=== PATIENT | female | born 1940 | race Caucasian/White ===

== ENCOUNTER → 2016-10-26 | Outpatient (CLI) | payer OTHER, BC ==
[~2016-10-26] MED LIST: ALEVE220 M1 PO; ALEVE220 MG PO; ALPRAZOLAM 0.50.5 M1 PO; ALPRAZOLAM PO; ASPIRIN EC81 M1 PO; CALCIUM OYSTER500 MG PO; FISH OIL 1,0001 EAC5 PO; FLEXERIL PO; GABAPENTIN100 MG PO; GLUCOSAMINE1000 MG PO; HYDROCHLOROTHIA25 M1 PO; HYDROCHLOROTHIA25 M2 PO; HYDROCODON-ACE1 EAC5 PO; HYDROCODONE-AP1 EAC6 PO; LUTEIN 15 MG S1 EACH PO; MULTIVITAMINS PO; NEURONTIN 300300 M1 PO; OMEPRAZOLE PO; OXYCODONE HCL E10 MG PO; OXYCONTIN10 M1 PO; POTASSIUM99 M1 PO; PREMARIN0.3 MG PO; PRILOSEC 10MG C10 M1 PO; PRILOSEC 20 MG20 MG PO; RESTORIL15 MG PO; SYNTHROID100 MCG PO; VICODIN 5-3001 EACH PO; VITAMIN B-12100 MC1 PO; VITAMIN B-625 MG PO; VITAMIN C 250250 MG PO; VITAMIN D400 UNI1 PO; ZANTAC 7575 MG PO
== END ==
LOC: CAT 09:36
DX: M47.896 Other spondylosis, lumbar region (principal); M54.5 Low back pain

== ENCOUNTER → 2016-10-27 | Outpatient (CLI) | payer OTHER, BC | LOC: RAD 10:47 → NUC 10:47 | DX: Z12.31 Encounter for screening mammogram for malignant neoplasm of breast (principal); M54.5 Low back pain ==

== ENCOUNTER → 2016-12-07 | Outpatient (CLI) | payer OTHER, BC | END | disposition home or self-care (01) | LOC: PAIN 06:48 | DX: M54.16 Radiculopathy, lumbar region (principal); M47.896 Other spondylosis, lumbar region; Z87.310 Personal history of (healed) osteoporosis fracture; Z88.2 Allergy status to sulfonamides; Z88.0 Allergy status to penicillin; Z88.8 Allergy status to other drugs, medicaments and biological substances; Z79.82 Long term (current) use of aspirin; Z79.899 Other long term (current) drug therapy ==

== ENCOUNTER → 2017-03-01 | Outpatient (CLI) | payer OTHER, BC ==
[~2017-03-01] VITALS: Ht 165.1 cm; Wt 83.9 kg
[~2017-03-01] MED LIST changes: +LIPITOR10 MG PO
--- NOTE | ~2017-03-01 | HPC ---
[facility] [place] [address] PAIN MANAGEMENT CONSULTATION Name: PATEL MCMULLEN Room #: REG [facility]..#: [id number] Admission: 03/01/17 Attend Phys: Tarun Scott MD Discharge: Date of : 40 Report #: [id number] THIS REPORT FOR: //name// CC: Dahlia Scott DATE OF SERVICE: 03/01/2017 Followup visit for low back pain with radiculopathy. The patient returns to pain clinic today requesting another epidural injection, she has responded nicely to these injections. We have also discussed other options for treatment in some detail at her last visit. Given her good response to these straight forward injections, we will continue to use them as they provide relief. For nearly 2 months after last injection, she had really good pain relief. She was able to go fishing with great zeal and gusto. Over the last month, pain has started to return. It is once again 5/10; sore with walking, bending and twisting and turning. It radiates into her hip. She is here for injection. Dr. Dahlia Glaser provides her medication for pain. She is on hydrocodone safely and carefully under terms of an opioid agreement. I did provide a prescription for her at last visit for 90 tablets, but Dr. Glaser will provide it going forward, she tells me. PHYSICAL EXAMINATION: She is pleasant female. Blood pressure is 132/66, heart rate 80. BMI is 30.8. She moves from sitting to standing position, walks with a stable gait. She is not a fall risk. She has pain across her low back with forward flexion and extension. Straight leg raising on the left reproduces pain into the hip. The pain has at times been more on the right than the left. Today her left side seems to be more prominent. IMPRESSION: Low back pain with diffuse spondylosis noted with some wedging deformities. She has slight left convex curvature noted and moderate canal narrowing at L3-L4 resulting in radiculopathy. RECOMMENDATIONS: Repeat epidural steroid injection under fluoroscopic guidance. The patient was taken to the fluoroscopic suite for procedure, placed prone, skin prepped with ChloraPrep. Skin anesthetized over the L4-L5 interspace. A 20-gauge Tuohy epidural needle advanced in first attempt in the epidural space with loss of resistance technique. There was no blood nor CSF aspirated. Then, 1 mL of Omnipaque was injected with good spread of dye observed in the epidural space followed by 3 mL of 0.5% lidocaine mixed with 80 mg of triamcinolone. She [address] [address] PAIN MANAGEMENT CONSULTATION Name: PATLE MCMULLEN Room #: REG Harvinder Glass#: [id number] Admission: 03/01/17 Attend Phys: Tarun Scott MD Discharge: Date of : 40 Report #: [id number] tolerated the procedure well and was observed for 45 minutes and discharged with followup visit scheduled on an as needed basis. By: [id number] 0323 Tarun Scott MD /dontae
[2017-03-01 13:14] VITALS: BP 132/66
== END | disposition home or self-care (01) ==
LOC: PAIN 07:08
DX: M47.26 Other spondylosis with radiculopathy, lumbar region (principal); M48.06 Spinal stenosis, lumbar region; Z68.30 Body mass index [BMI] 30.0-30.9, adult

== ENCOUNTER → 2017-06-14 | Outpatient (CLI) | payer OTHER, BC ==
[~2017-06-14] VITALS: Ht 165.1 cm; Wt 87.8 kg
[~2017-06-14] MED LIST changes: +CALCIUM 500 +1 EAC5 PO; +CELEBREX 200 M200 MG PO; +COLACE100 MG PO; +DILTIAZEM 24HR240 M2 PO; +ESTRADIOL 1 MG T1 M1 PO; +FLECAINIDE ACET50 M1 PO; +LASIX 40 MG TAB40 M2 PO; +LOPRESSOR25 PO; +NICOTINE TRANSD21 M1; +VANCOMYCIN1.5 GM/500 IV; +ZOLOFT50 MG PO; +ZOSYN 3.3753.375 GM IV
--- NOTE | ~2017-06-14 | HPC ---
[facility] [place] [address] PAIN MANAGEMENT CONSULTATION Name: PATEL MCMULLEN Room #: REG YOON M.Martha.#: [id number] Admission: 06/14/17 Attend Phys: Tarun Scott MD Discharge: Date of : 40 Report #: [id number] THIS REPORT FOR: //name// CC: Dahlia Scott DATE OF SERVICE: 06/14/2017 Followup visit for low back pain with radiculopathy. HISTORY OF PRESENT ILLNESS: The patient is here today for lumbar epidural injection. She has had periodic injections with good response. Duration of response is usually in the range of months. This will be her third injection in the last year. Pain is once again in her low back that radiates into her legs with some to the posterior lateral aspect of legs, right worse than left. Pain extends all the way to the ankles; worse with standing and weightbearing; it is improved with medication cold and sitting. Her activity remains pretty good. She still enjoys getting out into the [place], hunting and fishing. MEDICATIONS: Reviewed and reconciled from the medical record. PQRS EVALUATION: BMI is 32. She does not smoke. She is not a fall risk. She is not treated at this time nor has she been for hypertension. She is on an opioid and a written opioid agreement is on the chart. We reviewed the terms of that agreement and importance of safeguarding all medications. PHYSICAL EXAMINATION: The patient moves from sitting to standing position, ambulates without too much difficulty, has mild antalgic feature to her gait. Her blood pressure is 132/66, heart rate 80, BMI is 30.8. She has tenderness across the low back and positive straight leg raising. IMPRESSION: Lumbar radiculopathy, L3-L4, L4-L5. PROCEDURE: Epidural steroid injection under fluoroscopic guidance. DESCRIPTION OF PROCEDURE: The patient was taken to fluoroscopic suite, placed prone, skin prepped with ChloraPrep. Skin anesthetized over the L3-L4 interspace. A 22-gauge Tuohy epidural needle advanced in the epidural space with loss of resistance. There was no blood or CSF aspirated. 1 mL of Omnipaque was injected. Good spread of dye observed into the epidural space followed by 3 mL of 0.5% lidocaine mixed with 80 mg of triamcinolone. She [address] [address] PAIN MANAGEMENT CONSULTATION Name: PATEL MCMULLEN Room #: REG [facility] Maria Luisa#: [id number] Admission: 06/14/17 Attend Phys: Tarun Scott MD Discharge: Date of : 40 Report #: [id number] tolerated the procedure well and was observed for 45 minutes and discharged. Follow up as needed. <ELECTRONICALLY SIGNED> By: Tarun Scott MD 08/08/17 1640 1531 2230 Tarun Scott MD /nt
[2017-06-14 10:49] VITALS: BP 144/66
== END | disposition home or self-care (01) ==
LOC: PAIN 07:09 → MRI 07:09 → PAIN 09:35
DX: M54.16 Radiculopathy, lumbar region (principal); Z88.2 Allergy status to sulfonamides; Z88.0 Allergy status to penicillin; Z91.041 Radiographic dye allergy status; Z88.8 Allergy status to other drugs, medicaments and biological substances; Z79.82 Long term (current) use of aspirin; Z79.891 Long term (current) use of opiate analgesic; Z98.890 Other specified postprocedural states; Z79.899 Other long term (current) drug therapy

== ENCOUNTER → 2017-08-16 | Outpatient (CLI) | payer OTHER, BC ==
[~2017-08-16] VITALS: Ht 165.1 cm; Wt 87.7 kg
--- NOTE | ~2017-08-16 | HPC ---
[facility] [address] [place] [address] PAIN MANAGEMENT CONSULTATION Name: PATEL MCMULLEN Room #: REG Harvinder Carie.#: [id number] Admission: 08/16/17 Attend Phys: Tarun Scott MD Discharge: Date of : 40 Report #: [id number] THIS REPORT FOR: //name// CC: Dahlia Scott DATE OF SERVICE: 08/16/2017 Followup visit for chronic low back pain with radiculopathy. The patient returns to the pain clinic today after having seen Dr. John Garcia, neurosurgeon, who provided her with surgical options in June. He has encouraged her to manage her pain conservatively, but if necessary, he would offer her L3-L4 decompression with pedicle screw fusion. She is somewhat reluctant to proceed with that treatment. Much of her pain is axial. She understands that after such a fusion, she may still continue to have back pain. This does not sound like something she would like to do. In the past, she has responded well to epidural injections; however, the duration of response is shortening. She is here today to discuss another injection, but also discuss additional options. I reviewed with her the options of spinal cord stimulation and intrathecal pump therapy. I spent nearly 25 minutes to 30 minutes today with her in consultation regarding additional therapies. It is my opinion that she would do well with an intrathecal pump and would need to be filled about every 3 months. She has the support of her friend and partner who comes with her to each visit. She was given information to consider this and she will get an epidural injection today. We reviewed her PQRS assessment. 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 She has a BMI of 32.2. Vitals signs are blood pressure 156/75, heart rate 78, O2 sat is 96. Pain intensity today is as high as a 7. She is treated for hypertension and follows with her primary care physician. We do provide her with medication for pain. Celebrex and hydrocodone have both been given and she uses hydrocodone up to 3 times a day. I have agreed to renew that prescription for her for an MME of 30 per day. Side effects have been addressed and her important responsibilities of safeguarding. IMPRESSION: Low back pain with radiculopathy, L3-L4 and L4-L5. Evidence of spinal stenosis at L3-L4 with an old compression fracture at L3 showing Modic endplate changes between L3 and L4. PROCEDURE RECOMMENDATION: Epidural steroid injection under fluoroscopic guidance. [address] [address] PAIN MANAGEMENT CONSULTATION Name: PATEL MCMULLEN Room #: REG CLI [facility]#: [id number] Admission: 08/16/17 Attend Phys: Tarun Scott MD Discharge: Date of : 40 Report #: [id number] PROCEDURE: She was taken to the fluoroscopic suite for treatment, placed prone, skin prepped with ChloraPrep. Skin anesthetized over L3-L4. A 20-gauge Tuohy epidural needle advanced in the epidural space with a loss of resistance technique. No blood or CSF aspirated. 1 mL of Omnipaque injected. Good spread of dye observed into the epidural space. It was followed by 3 mL of 0.5% lidocaine mixed with 80 mg of triamcinolone. She tolerated the procedure well and was observed for 45 minutes and discharged with a followup visit planned on an as needed basis. <ELECTRONICALLY SIGNED> By: Tarun Scott MD 09/17/17 1408 1451 1953 Tarun Scott MD /nt
[2017-08-16 13:13] VITALS: BP 156/75
== END | disposition home or self-care (01) ==
LOC: PAIN 08-06 14:03
DX: M54.16 Radiculopathy, lumbar region (principal); M48.061 Spinal stenosis, lumbar region without neurogenic claudication; M17.0 Bilateral primary osteoarthritis of knee; M16.0 Bilateral primary osteoarthritis of hip; G89.29 Other chronic pain; F17.210 Nicotine dependence, cigarettes, uncomplicated; Z88.2 Allergy status to sulfonamides; Z98.890 Other specified postprocedural states; Z91.041 Radiographic dye allergy status; Z79.891 Long term (current) use of opiate analgesic; Z88.8 Allergy status to other drugs, medicaments and biological substances; Z79.82 Long term (current) use of aspirin; Z79.899 Other long term (current) drug therapy

== ENCOUNTER 2017-12-06 23:22 | Inpatient (IN) | payer OTHER, BC ==
[~2017-12-06] VITALS: Ht 165.1 cm; Wt 74.8 kg
--- NOTE | ~2017-12-06 | EKG ---
[place] [address] [place] [facility] [facility] [place] [address] ELECTROCARDIOGRAM REPORT Name: PATEL MCMULLEN Room #: 215-P DIS IN M.R.#: [id number] Admission: 12/07/17 Attend Phys: Corbin Barnes MD Discharge: 12/07/17 Date of : 40 Report #: [id number] THIS REPORT FOR: //name// [facility] ED Test Date: 2017-12-07 Test Time: 00:42:38 Pat Name: PATEL MCMULLEN Department: Room: 215 Gender: F Psychiatrist: GREGOR : 1940 Requested By: Raghu Garner Order Number: [id number] MD: Rip Cooley Measurements Intervals [place] Rate: 139 P: WI: QRS: -38 QRSD: 107 T: 40 QT: 321 QTc: 488 Interpretive Statements Atrial flutter/fibrillation Ventricular premature complex Left axis deviation Possible inferior infarct, age indeterminate Compared to ECG 09/27/2011 08:01:59 Ventricular premature complex(es) now present Atrial fibrillation is replaced sinus rhythm inferior Q waves are more prominent Electronically Signed On 12-10-2017 9:00:18 CDT by Rip Cooley [email or web address] <ELECTRONICALLY SIGNED> By: Rip Cooley MD, [facility] 12/10/17 09 Rip Cooley MD, [facility] /EPI
--- NOTE | ~2017-12-06 | EKG ---
[place] [address] [facility] [facility] [place] [address] ELECTROCARDIOGRAM REPORT Name: PATEL MCMULLEN Room #: 215-P [facility] IN M.R.#: [id number] Admission: 12/07/17 Attend Phys: Corbin Barnes MD Discharge: 12/07/17 Date of : 40 Report #: [id number] THIS REPORT FOR: //name// [facility] ED Test Date: 2017-12-06 Test Time: 23:47:58 Pat Name: PATEL MCMULLEN Department: Room: Gender: F Water Server: GREGOR : 1940 Requested By: Rosales Ortiz Order Number: [id number] MD: Rip Cooley Measurements Intervals [place] Rate: 94 P: 77 AR: 153 QRS: -29 QRSD: 113 T: 37 QT: 390 QTc: 488 Interpretive Statements Sinus rhythm Left anterior fascicular block Compared to ECG 09/27/2011 08:01:59 [place] shifted leftward Electronically Signed On 12-10-2017 8:57:52 CDT by Rip Cooley [email or web address] <ELECTRONICALLY SIGNED> By: Rip Cooley MD, [facility] 12/10/17 0857 46 46 Rip Cooley MD, [facility] /EPI
--- NOTE | ~2017-12-06 | 2DMMODE ---
[facility] [address] [place] [address] 2 D/M-MODE ECHOCARDIOGRAM Name: PATEL MCMULLEN Room #: 215-P ADM IN M.R.#: [id number] Admission: 12/07/17 Attend Phys: Corbin Barnes, Discharge: Date of : 40 Date of Service: 12/07/17 1536 Report #: [id number] THIS REPORT FOR: //name// APPROVED REPORT Study performed: 12/07/2017 10:59:47 EXAM: Comprehensive 2D, Doppler, and color-flow Echocardiogram Patient Location: Bedside Room #: [facility] Status: routine BSA: 1.98 HR: 89 bpm BP: 187/73 mmHg Rhythm: NSR/arrhythmia Other Information Study Quality: Adequate/patient flat on back. Indications Afib/flutter, elevated troponin. 2D Dimensions RVDd: 31.73 mm LVEF(%): 72.56 (>50%) IVSd: 12.46 (7-11mm) LVOT Diam: 20.92 (18-24mm) LVDd: 49.18 mm PWd: 12.31 (7-11mm) Ascending Ao: 33.67 (22-36mm) LVDs: 28.63 (25-40mm) Aortic Root: 31.44 mm Villa's LVEF: 72.56 % Volumes Left Atrial Volume (Systole) Single Plane 4CH: 38.84 mL Single Plane 2CH: 50.13 mL Aortic Valve AoV Peak Tong.: 2.17 m/s AO Peak Gr.: 18.85 mmHg LVOT Max P.56 mmHg LVOT Max V: 1.62 m/s HALI Vmax: 2.57 cm2 AI Vmax: 4.60 m/s AI Dooly: 4.35 m/s2 AI PHT: 306.98 ms [facility] [place] [address] 2 D/M-MODE ECHOCARDIOGRAM Name: MCMULLENLUISPATEL Room #: 215-P [facility] IN M.R.#: [id number] Admission: 12/07/17 Attend Phys: Corbin Barnes, Discharge: Date of : 40 Date of Service: 12/07/17 1536 Report #: [id number] Mitral Valve E/A Ratio: 1.4 MV Decel. Time: 158.52 ms MV E Max Tong.: 1.13 m/s MV A Tong.: 0.78 m/s MV PHT: 45.97 ms IVRT: 50.75 ms Pulmonary Vein P Vein S: 0.46 m/s P Vein D: 0.83 m/s P Vein S/D Ratio: 0.55 Tricuspid Valve TR Peak Tong.: 2.78 m/s RAP Estimate: 10.00 mmHg TR Peak Gr.: 30.92 mmHg PA Pressure: 41.00 mmHg Left Ventricle The left ventricle is normal size. There is normal LV segmental wall motion. Mild concentric left ventricular hypertrophy. Left ventricular systolic function is normal. LVEF is 60-65%. Moderate diastolic dysfunction is present (pseudonormal filling). Right Ventricle The right ventricle is normal size. The right ventricular systolic function is normal. Atria The left atrium size is normal. The right atrium size is normal. Aortic Valve The aortic valve is not well visualized but appears grossly normal. Moderate aortic regurgitation There is no aortic valvular stenosis. Mitral Valve The mitral valve is normal in structure. Mild to moderate mitral regurgitation. Tricuspid Valve The tricuspid valve is normal in structure. Trace tricuspid regurgitation. Estimated PAP is 40mmHg. Pulmonic Valve [address] [address] 2 D/M-MODE ECHOCARDIOGRAM Name: [facility] Room #: 215-P [facility] IN M.R.#: [id number] Admission: 12/07/17 Attend Phys: Corbin Barnes, Discharge: Date of : 40 Date of Service: 12/07/17 1536 Report #: [id number] Pulmonic valve is not well visualized. Great Vessels The aortic root is normal in size. The ascending aorta is normal in size. IVC is normal in size and collapses <50% with inspiration. Pericardium There is no pericardial effusion. <Conclusion> Left ventricular systolic function is normal. There is normal LV segmental wall motion. LVEF is 60-65%. Moderate diastolic dysfunction is present (pseudonormal filling). The aortic valve is not well visualized but appears grossly normal. Moderate aortic regurgitation, no stenosis The mitral valve is normal in structure. Mild to moderate mitral regurgitation. Trace tricuspid regurgitation. Estimated pulmonary artery pressure of 40mmHg. There is no pericardial effusion. <ELECTRONICALLY SIGNED> By: Rip Cooley MD, [facility] 12/07/17 1536 1536 1536 Rip Cooley MD, FACC /INF
--- NOTE | ~2017-12-06 | HC ---
[facility] [place] [address] CONSULTATION Name: PATEL MCMULLEN Room #: 215-P [facility] IN M.R.#: [id number] Admission: 12/07/17 Attend Phys: Corbin Branes MD Discharge: 12/07/17 Date of : 40 Report #: [id number] THIS REPORT FOR: //name// CC: Dahlia Barnes REASON FOR CONSULTATION: I was asked to evaluate concerning fever, pain, confusion with drainage from a lumbar spine pain pump incision. HISTORY OF PRESENT ILLNESS: The patient is a 76-year-old with chronic back pain. She is followed by Dr. Scott and Dr. Proctor at [facility]. On 11/16/2017, she had a morphine pain pump placed. She seemed to be doing reasonably well until approximately 4 days ago when she started having low-grade fever, mild nausea. Yesterday, had temperature up to 102 degrees associated with chills, nausea and some vomiting. No diarrhea. She had more confusion. Her back wound began to drain thin brown fluid. No radicular pain features. There have been no issues with her abdominal pain pump pocket. REVIEW OF SYSTEMS: Notes intermittent cough. No abdominal pain or diarrhea. She has been more constipated. No dysuria or frequency. No reported rash. ALLERGIES: PENICILLIN WITH GI UPSET. Tolerates Zosyn, which she is on now. SULFA, BETADINE, FENTANYL WITH NAUSEA, MORPHINE WITH NAUSEA. MEDICATIONS: As noted on her MAR, now on vancomycin and Zosyn. PAST MEDICAL HISTORY: Appendectomy, melanoma, hysterectomy, hypothyroidism, chronic back pain with spinal stenosis, hyperlipidemia. FAMILY HISTORY: Noncontributory. SOCIAL HISTORY: She is a smoker of cigarettes, moderate alcohol intake. PHYSICAL EXAMINATION: VITAL SIGNS: Maximum temperature this morning was 101.5 degrees, now 99.9. Vital signs were stable. GENERAL: She was alert, although some confusion. She had a hard time identifying where she was. She would drift off to sleep when not engaged in conversation. She was moderately obese. SKIN: Back incision in the lumbar region. Seropurulent drainage identified from a sinus tract in the lower aspect of the incision. This was cultured. The tunnel towards the right lateral flank was unremarkable. Her lower abdominal incision to the right lower abdomen was unremarkable. The pocket seemed unremarkable. She did have several small pustules to the right lower quadrant [address] [address] CONSULTATION Name: PATEL MCMULLEN Room #: 215-P [facility] IN M.R.#: [id number] Admission: 12/07/17 Attend Phys: Corbin Barnes MD Discharge: 12/07/17 Date of : 40 Report #: [id number] and several involving the left upper thigh and left lower quadrant region. No other skin lesions identified. LYMPH: Unremarkable. HEENT: Unremarkable. LUNGS: Few crackles in the bases bilaterally. HEART: Regular without murmur. ABDOMEN: Obese, soft and nontender. EXTERNAL GENITALIA: Unremarkable. EXTREMITIES: Otherwise unremarkable. LABORATORY STUDIES: Chest x-ray was clear. Urinalysis unremarkable other than ketones. Sodium 133, potassium 3.5, bicarbonate 23, creatinine 0.8. TSH was normal. Hemoglobin 13.1, white count 15.4, platelet count 239,000. Initial differential showed 88% neutrophils, 8% lymphs, 3% monocytes, 1% myelocyte. Liver function tests normal. CT of the head: No acute changes. Electrocardiogram: Atrial fibrillation. Troponin 0.17. CRP . Lactate 1.2. Blood cultures are pending. CT scan of the lumbar spine has been ordered. IMPRESSION: A 76-year-old, 3 weeks post pain pump placement in the lumbar spine, now with surgical site infection. It appears that she has organ space infection at this time. Would be concerned about staphylococcal infection. We will see what her Gram stain shows. She will require continued IV antibiotic therapy. We will await CT imaging. We will discuss with Neurosurgery at [facility] to see if he would like her transferred or continue care here with General Surgery evaluation. Her encephalopathy, I suspect it is more related to her infection. We will monitor this; hopefully will clear as antibiotics are on board. By: [id number] Rosales Antoine MD /nt
[~2017-12-06 23:22] MED LIST changes: -CALCIUM 500 +1 EAC5 PO; -COLACE100 MG PO; -DILTIAZEM 24HR240 M2 PO; -ESTRADIOL 1 MG T1 M1 PO; -FLECAINIDE ACET50 M1 PO; -LASIX 40 MG TAB40 M2 PO; -LOPRESSOR25 PO; -NICOTINE TRANSD21 M1; -VANCOMYCIN1.5 GM/500 IV; -ZOLOFT50 MG PO; -ZOSYN 3.3753.375 GM IV
[2017-12-06 23:24] VITALS: BP 168/86
[2017-12-07 00:04] LABS: HEMATOCRIT 40.8 % (37.0-47.0); HEMOGLOBIN 14.3 gm/dL (12.0-15.0); MCHC 35.1 g/dL (28.0-37.0); MCV 88.4 fL (80.0-100.0); PLATELET COUNT 260 thou/uL (150-400); RBC 4.61 mil/uL (4.20-5.00); RDW 13.6 % (10.5-14.5); WBC 18.9 thou/uL (4.0-11.0)
[2017-12-07 00:12] LABS: CALCIUM 8.4 mg/dL (8.5-10.1); CREATININE 0.6 mg/dL (0.6-1.0); POTASSIUM 3.4 mmol/L (3.5-5.1)
[2017-12-07 00:20] LABS: ALBUMIN 3.1 g/dL (3.4-5.0); TOTAL BILIRUBIN 0.6 mg/dL (<0.1-1.0); TOTAL PROTEIN 7.4 g/dL (6.4-8.2); TROPONIN-I 0.18 ng/mL (<0.06)
[2017-12-07 00:34] LABS: ABSOLUTE NEUTROPHILS 16.6 thou/uL (1.4-8.2); MYELOCYTES 1 %
[2017-12-07 03:02] VITALS: BP 134/53
[2017-12-07 03:41] VITALS: BP 146/69
[2017-12-07 04:30] VITALS: BP 107/73
[2017-12-07 07:03] LABS: HEMOGLOBIN 13.1 gm/dL (12.0-15.0); MCH 30.1 pg (26.0-34.0); MCHC 33.5 g/dL (28.0-37.0); MCV 89.9 fL (80.0-100.0); RBC 4.34 mil/uL (4.20-5.00); RDW 13.8 % (10.5-14.5); WBC 15.4 thou/uL (4.0-11.0)
[2017-12-07] MEDS ORDERED: CALCIUM 500 +1 EAC5 PO (07:10)
[2017-12-07] MEDS ORDERED: COLACE100 MG PO (07:11)
[2017-12-07] MEDS ORDERED: ESTRADIOL 1 MG T1 M1 PO (07:12)
[2017-12-07] MEDS ORDERED: NICOTINE TRANSD21 M1 (07:13)
[2017-12-07 07:31] LABS: ANION GAP 12 mmol/L (7-16); BUN 11 mg/dL (7-18); CALCIUM 7.8 mg/dL (8.5-10.1); CHLORIDE 98 mmol/L (98-107); CHOLESTEROL 135 mg/dL (<200); CO2 23 mmol/L (21-32); CREATININE 0.8 mg/dL (0.6-1.0); GLUCOSE 116 mg/dL (74-106); HDL CHOLESTEROL 63 mg/dL (>40); LDL CHOLESTEROL 60 mg/dL (<100); POTASSIUM 3.5 mmol/L (3.5-5.1); SODIUM 133 mmol/L (136-145); TC:HDL 2.1 Ratio (Not establshd); TRIGLYCERIDE 61 mg/dL (<150); VLDL 12 mg/dL (<40)
[2017-12-07 07:48] LABS: URINE BILIRUBIN NEGATIVE (Negative); URINE BLOOD TRACE (Negative); URINE CLARITY CLEAR; URINE COLOR YELLOW; URINE GLUCOSE-RANDOM* NEGATIVE (Negative); URINE KETONES 2+ (Negative); URINE LEUKOCYTES-REFLEX NEGATIVE (Negative); URINE NITRITE-REFLEX NEGATIVE (Negative); URINE PROTEIN (DIPSTICK) NEGATIVE (Negative); URINE SPECIFIC GRAVITY 1.025 (1.005-1.035); URINE UROBILINOGEN 0.2 E.U./dl (0.2-1.0)
[2017-12-07 08:05] VITALS: BP 187/73
[2017-12-07 11:31] VITALS: BP 178/75
[2017-12-07 16:07] VITALS: BP 172/72
[2017-12-07] MEDS ORDERED: ZOSYN 3.3753.375 GM IV (18:01)
[2017-12-07] MEDS ORDERED: VANCOMYCIN1.5 GM/500 IV (18:02)
[2017-12-07] MEDS ORDERED: LOPRESSOR25 PO (18:02)
== END 2017-12-07 19:00 | disposition short-term general hospital (02) | DRG 91 ==
LOC: ER 23:22 → EROBS 12-07 01:26 → 2N 12-07 01:26
PROVIDERS: Emergency Medicine; Nurse Practitioner Acute Care
DX: T85.738A Infection and inflammatory reaction due to other nervous system device, implant or graft, initial encounter (principal); A41.9 Sepsis, unspecified organism; I21.4 Non-ST elevation (NSTEMI) myocardial infarction; Y83.8 Other surgical procedures as the cause of abnormal reaction of the patient, or of later complication, without mention of misadventure at the time of the procedure; Y92.89 Other specified places as the place of occurrence of the external cause; I48.91 Unspecified atrial fibrillation; E03.9 Hypothyroidism, unspecified; G89.29 Other chronic pain; M54.9 Dorsalgia, unspecified; E78.5 Hyperlipidemia, unspecified; F17.210 Nicotine dependence, cigarettes, uncomplicated; E87.6 Hypokalemia; R13.10 Dysphagia, unspecified; Z90.49 Acquired absence of other specified parts of digestive tract; Z90.710 Acquired absence of both cervix and uterus; Z98.818 Other dental procedure status; Z88.0 Allergy status to penicillin; Z88.2 Allergy status to sulfonamides; Z88.8 Allergy status to other drugs, medicaments and biological substances; Z88.6 Allergy status to analgesic agent; Z91.041 Radiographic dye allergy status
CPT/HCPCS: 10081

== ENCOUNTER → 2018-03-19 | Outpatient (CLI) | payer OTHER, BC ==
[~2018-03-19] MED LIST changes: +CALCIUM 500 +1 EAC5 PO; +COLACE100 MG PO; +DILTIAZEM 24HR240 M2 PO; +ESTRADIOL 1 MG T1 M1 PO; +FLECAINIDE ACET50 M1 PO; +LASIX 40 MG TAB40 M2 PO; +LOPRESSOR25 PO; +NICOTINE TRANSD21 M1; +VANCOMYCIN1.5 GM/500 IV; +ZOLOFT50 MG PO; +ZOSYN 3.3753.375 GM IV
== END ==
LOC: RAD 03:04
DX: R92.2 Inconclusive mammogram (principal)

== ENCOUNTER → 2018-03-20 | Outpatient (CLI) | payer OTHER, BC ==
[~2018-03-20] VITALS: Ht 165.1 cm; Wt 82.7 kg
--- NOTE | ~2018-03-20 | HPC ---
[facility] [place] [address] PAIN MANAGEMENT CONSULTATION Name: PATEL MCMULLEN Room #: REG [facility].#: [id number] Admission: 03/20/18 Attend Phys: Tarun Scott MD Discharge: Date of : 40 Report #: [id number] THIS REPORT FOR: //name// CC: Dahlia Scott DATE OF SERVICE: 03/20/2018 The patient returns to pain clinic today for the first time since August. She underwent placement of an intrathecal pump with Dr. Proctor's team. She was doing beautifully. Unfortunately, 3 weeks after placement, she developed an infection of her pump pocket, had to have the entire system explanted. This was a big setback for her. She was on IV antibiotics and then was in rehab for a month before she could return home. I am seeing her today, back to her old pain, pain across the lower back and pain into her legs with radiculopathy L3-L4, L4-L5. She has spinal stenosis, but again checked endplate changes at L3-L4. Much of her pain radiates in the L5-S1 distribution. She is discouraged by the setback and the pain. All she really wants to do, she tells me, is to go fishing. I have agreed to provide her an epidural injection today. Much of her pain is across her low back. We could consider the use of diagnostic medial branch nerve block and follow up with radiofrequency ablation if this axial back pain persists. It is hard to tell whether this is facet underwriting specialist or can be more from the area of instability above at L3-L4. She has responded well to epidural injections in the past. Not all injections provided same relief but typically she will get fairly dramatic relief for up to a few weeks. At this point in time, she would like any relief she can get after a long summer of suffering following the explant of her intrathecal pump. PQRS review shows that this is a very jesu 77-year-old female. She has a history of right lower extremity, hip and knee osteoarthritis. Her BMI is 30.4. Her blood pressure 150/53. Her pain intensity 9/10. She is not a fall risk and is cautious, has not fallen in the last 3 months. She does not use blood thinners. She is under treatment for hypertension. She is on an opioid agreement. Dr. Glaser provides her medication for her typically. She smokes half a pack a day and has done so for 45 years and likes a glass of wine and [place] [address] PAIN MANAGEMENT CONSULTATION Name: PATEL MCMULLEN Room #: REG [facility] Maria Luisa#: [id number] Admission: 03/20/18 Attend Phys: Tarun Scott MD Discharge: Date of : 40 Report #: [id number] IMPRESSION: 1. Chronic low back pain with radiculopathy, failure of intrathecal therapy due to infection with need for explant of intrathecal pump. 2. Management of high risk medications. We will assist with this and prefer that she receive all medications in future from Dr. Glaser, her primary care physician. 3. Lumbar radiculopathy. We will proceed today with epidural injection. PROCEDURE: She was taken to fluoroscopic suite, placed prone, skin prepped with ChloraPrep. Skin anesthetized over L5-S1 and a 20-gauge Tuohy epidural needle advanced into the epidural space with loss of resistance technique. There was no blood or CSF aspirated. 1 mL of Isovue was injected. Good spread of dye observed in the epidural space, followed by 3 mL of 0.5% lidocaine mixed with 80 mg of triamcinolone. She tolerated the procedure well and was observed for 45 minutes and discharged. Followup visit plan as needed. By: [id number] 0448 Tarun Scott MD /nt
[2018-03-20 14:26] VITALS: BP 150/53
== END | disposition home or self-care (01) ==
LOC: PAIN 06:57
DX: M54.16 Radiculopathy, lumbar region (principal); G89.29 Other chronic pain; M48.061 Spinal stenosis, lumbar region without neurogenic claudication; M17.11 Unilateral primary osteoarthritis, right knee; M16.11 Unilateral primary osteoarthritis, right hip; I10 Essential (primary) hypertension; I21.4 Non-ST elevation (NSTEMI) myocardial infarction; I48.91 Unspecified atrial fibrillation; A41.9 Sepsis, unspecified organism; F17.210 Nicotine dependence, cigarettes, uncomplicated; Z98.890 Other specified postprocedural states; Z79.891 Long term (current) use of opiate analgesic; Z88.0 Allergy status to penicillin; Z88.2 Allergy status to sulfonamides; Z88.8 Allergy status to other drugs, medicaments and biological substances; Z79.82 Long term (current) use of aspirin; Z79.899 Other long term (current) drug therapy

== ENCOUNTER → 2018-05-30 | Outpatient (CLI) | payer OTHER, BC ==
[~2018-05-30] VITALS: Ht 165.1 cm; Wt 82.1 kg
--- NOTE | ~2018-05-30 | HPC ---
[facility] [place] [address] PAIN MANAGEMENT CONSULTATION Name: PATEL MCMULLEN Room #: REG [facility].#: [id number] Admission: 05/30/18 Attend Phys: Tarun Scott MD Discharge: Date of : 40 Report #: [id number] THIS REPORT FOR: //name// CC: Dahlia Scott DATE OF SERVICE: 05/30/2018 CHIEF COMPLAINT: Low back pain with spondylosis. The patient is in the pain clinic today and has actually 2 components to her pain. One is clearly a spondylitic low back pain. It is worse with back extension, standing and weightbearing. This also bothers her when she rides in the car too long and when she is stiff. The second pain is a radicular pain that follows the L5-S1 distribution into the right leg. They are independent of each other. The right leg pain often comes at night and prevents her from sleeping. PQRS demonstrates osteoarthritis of the right hip and knee. Evidence of lumbar spondylosis as well. BMI 30.4, blood pressure 150/53, heart rate 80. Pain intensity today is 9/10 in the low back. She has not fallen, nor is she considered at this point a fall risk. She is on no blood thinners. No history of opioid issues and all medications are provided for her by outside physicians. I do not prescribe opioids for her under an agreement. She continues to smoke 1/2 pack per day and was given information on smoking cessation strategies. She enjoys a glass of wine or beer daily. Her gait is steady. She has positive straight leg raising on the right. She has pain with back extension. IMPRESSION: 1. Lumbar spondylosis. 2. Lumbar radiculopathy, right L5-S1 distribution. RECOMMENDATION: Medial branch nerve blocks L3-L4 and dorsal ramus nerve block. Injections will be bilateral to provide diagnostic denervation of the L4-L5, L5-S1 facet joints. A second diagnostic injection will be performed in the next week or two. If she has good favorable response greater than 75% to the injections, then we will consider going forward with radiofrequency ablation of the above-mentioned nerves. PROCEDURE: Diagnostic medial branch nerve blocks L3-L4 and dorsal ramus L5 bilateral with 0.5 mL of 0.5% bupivacaine under fluoroscopic guidance. She was taken to fluoroscopic suite, placed prone, skin prepped with ChloraPrep. [address] [address] PAIN MANAGEMENT CONSULTATION Name: PATEL MCMULLEN Room #: REG CLI [facility]#: [id number] Admission: 05/30/18 Attend Phys: Tarun Scott MD Discharge: Date of : 40 Report #: [id number] Skin was anesthetized first on the left with 1 mL of 1% lidocaine. A 25-gauge needles were then used using a C-arm to position at the medial border of the transverse process of L4 and L5 and at the sacral ala for proper placement. There was no blood aspirated. I gently injected 0.5 mL of 0.5% bupivacaine at each location. The needles were withdrawn from the left side. C-arm was moved to the right and the procedure was repeated at the same location on the right. She tolerated the procedure well. We observed her for 30 minutes in the recovery room and then had her ambulate. She was given a flow sheet. Her pre-injection pain score with activity was 6-7/10. At the discharge from recovery room her pain score with activity, walking around the clinic, was a 3/10. We will repeat the second diagnostic series in 1-2 weeks. By: 1550 1950 Tarun Scott MD /nt
[2018-05-30 13:17] VITALS: BP 178/59
== END | disposition home or self-care (01) ==
LOC: PAIN 08:45
DX: M47.26 Other spondylosis with radiculopathy, lumbar region (principal); M54.5 Low back pain; M16.11 Unilateral primary osteoarthritis, right hip; M17.11 Unilateral primary osteoarthritis, right knee; F17.210 Nicotine dependence, cigarettes, uncomplicated; Z88.2 Allergy status to sulfonamides; Z79.82 Long term (current) use of aspirin; Z79.899 Other long term (current) drug therapy

== ENCOUNTER → 2018-06-06 | Outpatient (CLI) | payer OTHER, BC ==
[~2018-06-06] VITALS: Ht 165.1 cm; Wt 82.1 kg
[~2018-06-06] MED LIST changes: +CLOBETASOL PROP15 GM TOP; +FAMCYCLOVIR 50500 M1 PO
[2018-06-06 13:37] VITALS: BP 157/69
--- NOTE | 2018-06-06 13:52 | NUR ---
Pain Clinic Assessment: 1. History of Osteoarthritis: Right Lower Extremity History of Rheumatoid Arthritis: Not Applicable 2. Height: 5 ft. 5 in. 165.1 cm. Weight: 181.0 lb. oz. 82.101 kg. Patient's BMI: 30.1 3. Vital Signs: BP: 157/69 Pulse: 71 Resp: 16 Temp: 02 Sat: 96 ECG Mon: 4. Pain Intensity: 5 5. Fall Risk: Dizziness: N Needs help standing or walking: N Fallen in the last 3 months: N Fall risk comments: USES CANE 6. Patient on Blood Thinner: None 7. History of Hypertension: Y 8. Opioid Therapy greater than 6 weeks: Y Opiate Contract Signed: 9. Risk Assessment Tool Provided: LOW RISK 0/3 10. Functional Assessment Tool: 11. Recreational Drug Use: Never Drug Type: Tobacco Use: Current Every Day Smoker Tobacco Type: Amount or Packs/day: How Many Years: Alcohol Use: Yes Frequency: Quant:
--- NOTE | 2018-06-12 11:18 | HPC ---
[facility] [place] [address] PAIN MANAGEMENT CONSULTATION Name: PATEL MCMULLEN Room #: REG [facility].#: [id number] Admission: 06/06/18 Attend Phys: Tarun Scott MD Discharge: Date of : 40 Report #: [id number] THIS REPORT FOR: //name// CC: Dahlia Scott DATE OF SERVICE: 06/06/2018 HISTORY OF PRESENT ILLNESS: The patient presents to clinic today for a second in a series of 2 diagnostic medial branch nerve blocks, bilateral, L3-L4 and the dorsal ramus of L5 for lumbar spondylitic low back pain. The first diagnostic injection was reviewed and she presented with her diary. She had complete pain relief for a couple of hours about 1 hour following the procedure and then the pain returned later in the evening as would be expected. This would be a favorable and positive response to the diagnostic injections, the second will be repeated today. She is instructed, during the actions of the local anesthetic, to perform activities that would normally bring on pain so we will have an idea of the true responsiveness of the injection. Given a good response again today, we would expect that she would be an excellent candidate for radiofrequency ablation and we will schedule her within the next week or two to come in for the procedure. We can perform all 3 lesions on one side simultaneously and I would like to do both sides at the same time so we will proceed in that manner. If she does not receive a favorable response to this diagnostic set of injections, we will consider other options for treatment. As the chart will reflect it has been a difficult year, she has failed an intrathecal pump due to an infection and we are looking for other options to help manage her pain effectively. PQRS review completed on 05/30 is identical with no changes since previous visit. IMPRESSION: Lumbar spondylosis. PROCEDURE: Bilateral medial branch nerve blocks, L3-L4, and dorsal ramus nerve block, L5. DESCRIPTION OF PROCEDURE: She was taken to fluoroscopic suite where she was placed prone and skin was prepped with ChloraPrep, began on the left. Skin was anesthetized overlying the targets for the L3 and L4 medial branch nerves on the L4 and L5 medial transverse process. [place] were positioned nicely, 25-gauge, without difficulty. No blood was aspirated. I then positioned the needle at [address] [address] PAIN MANAGEMENT CONSULTATION Name: PATEL MCMULLEN Room #: REG [facility].#: [id number] Admission: 06/06/18 Attend Phys: Tarun Scott MD Discharge: Date of : 40 Report #: [id number] the L5 dorsal ramus location on the sacral ala and after a negative aspiration, gently injected through each needle 0.5 mL of 0.5% bupivacaine. Needle was withdrawn from the left. The C-arm was then moved to the right. Mirror image injection was performed on the right at the L3-L4 medial branch nerves and the L5 dorsal ramus. She tolerated the injections very well. She was taken to recovery room where early response was favorable with a pain score 0-1 at discharge. She was given a diary and our plan is to go ahead and schedule her back in the clinic for presumed radiofrequency ablation in the next 2-3 weeks. Questions were answered. She will continue on some pain medication as ordered until we have been able to complete the radiofrequency ablation. <ELECTRONICALLY SIGNED> By: Tarun Scott MD 06/12/18 1118 1602 1348 Tarun Scott MD /nt
== END | disposition home or self-care (01) ==
LOC: PAIN 07:47
DX: M47.816 Spondylosis without myelopathy or radiculopathy, lumbar region (principal); I21.4 Non-ST elevation (NSTEMI) myocardial infarction; F17.200 Nicotine dependence, unspecified, uncomplicated; Z88.2 Allergy status to sulfonamides; Z88.8 Allergy status to other drugs, medicaments and biological substances; Z79.82 Long term (current) use of aspirin; Z79.899 Other long term (current) drug therapy; Z79.891 Long term (current) use of opiate analgesic

== ENCOUNTER → 2018-06-27 | Outpatient (CLI) | payer OTHER, BC ==
[~2018-06-27] VITALS: Ht 165.1 cm; Wt 82.1 kg
--- NOTE | ~2018-06-27 | HPC ---
[address] [address] PAIN MANAGEMENT CONSULTATION Name: PATEL MCMULLEN [facility].#: [id number] Admission: 06/27/18 Attend Phys: Tarun Scott MD Discharge: Date of : 40 Report #: [id number] THIS REPORT FOR: //name// CC: Dahlia Scott DATE OF SERVICE: 06/27/2018 Followup visit for lumbar spondylosis, chronic low back pain. The patient is here today for radiofrequency ablation. She has had two diagnostic procedures, which have been successful in providing substantial pain relief over a short period of time. Medial branch nerves treated are L3-L4 as well as the dorsal ramus of L5. She is here today for the conclusion of the procedure, bilateral L3-L4 medial branch and an L5 dorsal ramus radiofrequency treatment. We have had opportunity over the last month to discuss the procedure in great detail using multiple diagrams to discuss the rationale and treatment. She is anxious to proceed today with ablation. IMPRESSION: Lumbar spondylosis. PROCEDURE: Radiofrequency ablation treatment. DESCRIPTION OF PROCEDURE: After informed consent, the patient was taken to fluoroscopic suite where she was placed in the prone position. We began on the left. The C-arm was positioned in order to provide alignment with the facet joints. Skin was anesthetized and a 20-gauge 10 mm active tip RF needle was advanced into position with the tip resting at the junction between the transverse process and the superior articular process. Within this groove, the needles were placed and AP and lateral projections confirmed good location. I then assumed an anterior-posterior position and advanced the needle into position for the L5 dorsal ramus at the sacral ala. The needle was positioned using AP and lateral views. We then began the testing process, testing first at 50 Hz and then at 2 Hz, confirming good location by sensory testing and a lack of response in the lower extremities to motor testing. The probes were withdrawn and through each needle, I injected 1 mL of 1% lidocaine to anesthetize the nerves. The probes were returned to the needles and after a period of 60 seconds an RF lesion was performed at 80 degrees for 90 seconds. The probes were retracted slightly and the needles were rotated 180 degrees. A second lesion was performed. The probes were removed for the final time and through each needle I injected 1 mL of 0.5% bupivacaine with 10 mg of triamcinolone. The needles were then withdrawn. The C-arm was then returned to the right for right lateral positioning and the [address] [address] PAIN MANAGEMENT CONSULTATION Name: PATEL MCMULLEN Room #: REG CLI [facility]#: [id number] Admission: 06/27/18 Attend Phys: Tarun Scott MD Discharge: Date of : 40 Report #: [id number] procedure was repeated in mirror image by the exact same technique on the right. All confirmation stimulations for sensory at 50 Hz and motor at 2 Hz were recorded on the radiofrequency procedure form. This is part of the electronic medical record. At the conclusion of the procedure, the patient was taken to Recovery Room, was in good condition. She had no subjective or objective weakness and no discomfort in the legs. She was discharged in good condition, to be followed up by telephone in 1-2 weeks. She will call the clinic if there are any concerns or questions over the next several days. She was instructed to use ice over the next 48 hours and resume gentle activities in 24-48 hours. By: 1712 [id number] Tarun Scott MD /nt
[2018-06-27 14:23] VITALS: BP 150/70
--- NOTE | 2018-06-27 14:32 | NUR ---
Pain Clinic Assessment: 1. History of Osteoarthritis: Right Lower Extremity History of Rheumatoid Arthritis: Not Applicable 2. Height: 5 ft. 5 in. 165.1 cm. Weight: 181.0 lb. oz. 82.101 kg. Patient's BMI: 30.1 3. Vital Signs: BP: 150/70 Pulse: 79 Resp: 18 Temp: 02 Sat: 94 ECG Mon: 4. Pain Intensity: 7 5. Fall Risk: Dizziness: N Needs help standing or walking: N Fallen in the last 3 months: N Fall risk comments: USES CANE 6. Patient on Blood Thinner: None 7. History of Hypertension: Y 8. Opioid Therapy greater than 6 weeks: Y Opiate Contract Signed: 9. Risk Assessment Tool Provided: LOW RISK 0/3 10. Functional Assessment Tool: 48/ 11. Recreational Drug Use: Never Drug Type: Tobacco Use: Current Every Day Smoker Tobacco Type: Amount or Packs/day: How Many Years: Alcohol Use: Yes Frequency: Quant:
== END | disposition home or self-care (01) ==
LOC: PAIN 07:19
DX: M47.816 Spondylosis without myelopathy or radiculopathy, lumbar region (principal); G89.29 Other chronic pain; F17.210 Nicotine dependence, cigarettes, uncomplicated; Z88.2 Allergy status to sulfonamides; Z88.8 Allergy status to other drugs, medicaments and biological substances; Z79.82 Long term (current) use of aspirin; Z79.899 Other long term (current) drug therapy

== ENCOUNTER → 2018-07-25 | Outpatient (CLI) | payer OTHER, BC ==
[~2018-07-25] VITALS: Ht 165.1 cm; Wt 81.4 kg
--- NOTE | ~2018-07-25 | HPC ---
[facility] [place] [address] PAIN MANAGEMENT CONSULTATION Name: PATEL MCMULLEN Room #: REG [facility].#: [id number] Admission: 07/25/18 Attend Phys: Tarun Scott MD Discharge: Date of : 40 Report #: [id number] THIS REPORT FOR: //name// CC: Dahlia Scott DATE OF SERVICE: 07/25/2018 Followup visit for chronic low back pain with spondylosis. The patient returns to clinic today in followup. She might have been able to call in her visit. She is doing exceptionally well after radiofrequency ablation. Pain has dramatically reduced. She still has some pain, but she was able to stand and cook an entire meal last night. Pain score is 2. PHYSICAL EXAMINATION: VITAL SIGNS: Blood pressure 147/76, heart rate 65 and respirations 16. MUSCULOSKELETAL: She moves easily from sitting to standing position and ambulates without too much difficulty. IMPRESSION: Lumbar spondylosis and post-laminectomy syndrome, improved following radiofrequency ablation. Followup visit planned only as needed. By: 1642 2340 Tarun Scott MD /nt
[2018-07-25 14:22] VITALS: BP 147/76
--- NOTE | 2018-07-25 14:38 | NUR ---
Pain Clinic Assessment: 1. History of Osteoarthritis: Right Lower Extremity History of Rheumatoid Arthritis: Not Applicable 2. Height: 5 ft. 5 in. 165.1 cm. Weight: 179.4 lb. oz. 81.375 kg. Patient's BMI: 29.9 3. Vital Signs: BP: 147/76 Pulse: 65 Resp: 16 Temp: 02 Sat: 98 ECG Mon: 4. Pain Intensity: 2 5. Fall Risk: Dizziness: N Needs help standing or walking: N Fallen in the last 3 months: N Fall risk comments: USES CANE 6. Patient on Blood Thinner: None 7. History of Hypertension: Y 8. Opioid Therapy greater than 6 weeks: Y Opiate Contract Signed: 9. Risk Assessment Tool Provided: LOW RISK 0/3 10. Functional Assessment Tool: 48/70 11. Recreational Drug Use: Never Drug Type: Tobacco Use: Current Every Day Smoker Tobacco Type: Cigarettes Amount or Packs/day: How Many Years: Alcohol Use: Yes Frequency: Quant:
== END ==
LOC: PAIN 07:11
DX: M47.816 Spondylosis without myelopathy or radiculopathy, lumbar region (principal); M96.1 Postlaminectomy syndrome, not elsewhere classified

== ENCOUNTER → 2018-12-26 | Outpatient (CLI) | payer OTHER, BC ==
[~2018-12-26] VITALS: Ht 165.1 cm; Wt 83.3 kg
--- NOTE | ~2018-12-26 | HPC ---
[facility] [place] [address] [place] [address] PAIN MANAGEMENT CONSULTATION Name: PATEL MCMULLEN Room #: REG [facility].#: [id number] Admission: 12/26/18 ������������������ Attend Phys: Tarun Scott MD Discharge: ������������������ Date of : 40 Report #: [id number] THIS REPORT FOR: //name// CC: Dahlia Scott DATE OF SERVICE: 12/26/2018 The patient returns to pain clinic today for assessment and treatment of low back pain with radiculopathy. She has done better following her radiofrequency, but interestingly, much of the improvement came with her leg pain. It was quite severe prior to treatment and it has actually improved since her radiofrequency ablation. She still reports that she is miserable. Most of her pain is across her lumbosacral segment, although she has radiation into the buttock. She is unable to do many of the things that she loves, including fishing. She is walking with a cane. She was really set low by the infection that developed with her intrathecal pump. It is unfortunate because she was doing quite well with it. She is struggling with the decision on whether or not to go forward with a replacement pump. I think given the prolonged recovery that she had, it is unlikely that she will do so. PQRS REVIEW: Shows that: 1. She has diffuse osteoarthritis, mostly involving the right lower extremity and right knee. 2. She is 5 feet 5 inches with a BMI of 30.6. 3. Her vital signs, blood pressure 142/56, heart rate 70, respirations 16 and O2 sat 96. 4. Pain intensity is 6/10. 5. She is using a cane and has not fallen, but I would consider her a fall risk because of her need for stabilizing cane. 6. No blood thinning medication. 7. History of hypertension, under treatment. Medication is reviewed and reconciled from the electronic medical record. 8. She has completed an opioid agreement and an opioid risk tool, but we currently do not prescribe opioids for her. 9. She continues to smoke a half pack of cigarettes a day and has done so for 40 years. Their role in chronic pain was reviewed. She drinks alcohol 1-2 beers per day. IMPRESSION: Chronic low back pain with radiculopathy. [address] [address] PAIN MANAGEMENT CONSULTATION Name: PATEL MCMULLEN Room #: REG [facility].#: [id number] Admission: 12/26/18 ������������������ Attend Phys: Tarun Scott MD Discharge: ������������������ Date of : 40 Report #: [id number] RECOMMENDATIONS: An L5-S1 epidural injection. DESCRIPTION OF PROCEDURE: She was taken to the fluoroscopic suite, placed prone and skin prepped with ChloraPrep. Skin anesthetized over the L5-S1 interspace. A 20-gauge Tuohy epidural needle advanced in the epidural space using loss of resistance technique. There was no blood or CSF aspirated. A 1 mL of Omnipaque was injected. Good spread of dye observed into the epidural space. This was followed by 3 mL of 0.5% lidocaine mixed with 80 mg of triamcinolone. She tolerated the procedure well, was observed for 45 minutes and discharged. Pain score was 0 at discharge. We will see her back as needed. ��������������������������������������������� ���������������������������������������� By: ��������������������������������������������� 1848 [id number] Tarun Scott MD /nt
[2018-12-26 12:42] VITALS: BP 142/56
--- NOTE | 2018-12-26 12:56 | NUR ---
Pain Clinic Assessment: 1. History of Osteoarthritis: Right Lower Extremity History of Rheumatoid Arthritis: Not Applicable 2. Height: 5 ft. 5 in. 165.1 cm. Weight: 183.6 lb. oz. 83.280 kg. Patient's BMI: 30.6 3. Vital Signs: BP: 142/56 Pulse: 70 Resp: 16 Temp: 02 Sat: 96 ECG Mon: 4. Pain Intensity: 6 5. Fall Risk: Dizziness: N Needs help standing or walking: N Fallen in the last 3 months: N Fall risk comments: USES CANE 6. Patient on Blood Thinner: None 7. History of Hypertension: Y 8. Opioid Therapy greater than 6 weeks: N Opiate Contract Signed: 9. Risk Assessment Tool Provided: LOW RISK 0/3 10. Functional Assessment Tool: 11. Recreational Drug Use: Never Drug Type: Tobacco Use: Current Every Day Smoker Tobacco Type: Cigarettes Amount or Packs/day: 0.5 How Many Years: 40 Alcohol Use: Yes Frequency: Daily Quant: 2 BEERS
== END | disposition home or self-care (01) ==
LOC: PAIN 11:34
DX: M54.17 Radiculopathy, lumbosacral region (principal); G89.29 Other chronic pain; M19.90 Unspecified osteoarthritis, unspecified site; I10 Essential (primary) hypertension; F17.210 Nicotine dependence, cigarettes, uncomplicated; Z88.2 Allergy status to sulfonamides; Z88.8 Allergy status to other drugs, medicaments and biological substances; Z79.82 Long term (current) use of aspirin; Z79.899 Other long term (current) drug therapy

== ENCOUNTER → 2019-03-17 | Outpatient (CLI) | payer OTHER, BC ==
[~2019-03-17] VITALS: Ht 165.1 cm; Wt 82.5 kg
[~2019-03-17] MED LIST changes: +COZAAR 25 MG TA25 M1 PO; +DILTIAZEM 24HR180 M1 PO; +XANAX 0.5 MG0.5 MG PO
[2019-03-17 12:47] VITALS: BP 158/64
--- NOTE | 2019-03-17 13:02 | NUR ---
Pain Clinic Assessment: 1. History of Osteoarthritis: Right Lower Extremity History of Rheumatoid Arthritis: Not Applicable 2. Height: 5 ft. 5 in. 165.1 cm. Weight: 181.8 lb. oz. 82.464 kg. Patient's BMI: 30.3 3. Vital Signs: BP: 158/64 Pulse: 76 Resp: 16 Temp: 02 Sat: 97 ECG Mon: 4. Pain Intensity: 8 5. Fall Risk: Dizziness: N Needs help standing or walking: Y Fallen in the last 3 months: N Fall risk comments: USES CANE 6. Patient on Blood Thinner: None 7. History of Hypertension: Y 8. Opioid Therapy greater than 6 weeks: N Opiate Contract Signed: 9. Risk Assessment Tool Provided: LOW RISK 0 10. Functional Assessment Tool: 11. Recreational Drug Use: Never Drug Type: Tobacco Use: Current Every Day Smoker Tobacco Type: Cigarettes Amount or Packs/day: 1 PACK How Many Years: 9 Alcohol Use: Yes Frequency: Daily Quant: 1-2
--- NOTE | 2019-03-20 16:52 | HPC ---
[facility] [address] [place] [address] PAIN MANAGEMENT CONSULTATION Name: PATEL MCMULLEN Room #: REG [facility].#: [id number] Admission: 03/17/19 Attend Phys: Tarun Scott MD Discharge: Date of : 40 Report #: [id number] THIS REPORT FOR: //name// CC: Dahlia Scott DATE OF SERVICE: 03/17/2019 Followup visit for post-laminectomy radicular symptoms and chronic low back pain with spondylosis. The patient returns to pain clinic today for an epidural injection. She has done well with these injections providing quite reasonable pain relief, although the duration of response has not been quite as long as we had hoped. She had an intrathecal pump placed, which was working very well until unfortunately an infection necessitated its removal. We discussed about possibly going forward with another placement sometime in the future, but she remains reluctant. She has stayed off of stronger opioids, but is continuing to take a modest amount of hydrocodone under the guidance of Dr. Glaser. We do not provide for her opioid therapy. Today, she reports that her last epidural provided enough pain relief that she was able to go fishing! This was one of her goals in the summer. She did have more than once. She got many fishes and cleaned them and has some frozen in her refrigerator. She is hopeful that she can receive some benefit once again from the epidural. There have been no other significant changes in her health history since our last visit. PQRS REVIEW: 1. She does have a history of osteoarthritis involving hips and knees, worse on the right. 2. BMI is 30. 3. Vital signs: Blood pressure 158/64, heart rate 67. 4. Pain intensity 8. 5. She is a fall risk and needs some help standing or walking. She is using a cane at times. She has not fallen in the last 3 months. 6. No blood thinners. 7. Hypertension is treated by Dr. Glaser. All medications reviewed and reconciled today from the electronic medical record. 8. She denies any opioid therapy from our practice. [address] [address] PAIN MANAGEMENT CONSULTATION Name: PATEL MCMULLEN Room #: REG [facility]#: [id number] Admission: 03/17/19 Attend Phys: Tarun Scott MD Discharge: Date of : 40 Report #: [id number] 9. We did have her complete an opioid risk tool for which she scored 0. 10. Functional assessment score is 48/70 suggesting a fairly significant impact of her pain on day-to-day activities. 11. She continues to smoke and was counseled. She continues to enjoy alcohol on a daily basis, 1-2 alcoholic beverages. PHYSICAL EXAMINATION: VITAL SIGNS: As noted above. GENERAL: She is pleasant, alert and oriented, without signs of depression, anxiety or overmedication. She has some slight memory loss. MUSCULOSKELETAL: She moves easily from sitting to standing position. Her gait is nonantalgic. Examination of the spine reveals tenderness and a scar from previous surgery. Straight leg raising is positive. Pain follows an L5-S1 distribution bilaterally. IMPRESSION: Lumbar radiculopathy, post-laminectomy syndrome. PROCEDURE: Lumbar epidural steroid injection under fluoroscopic guidance. DESCRIPTION OF PROCEDURE: She was taken to fluoroscopic suite for the procedure, placed prone, skin prepped with ChloraPrep. Skin anesthetized over the L5-S1 interspace. A 20-gauge Tuohy epidural needle was advanced in the epidural space with loss of resistance technique and there was no blood, nor CSF aspirated. A 1 mL of Omnipaque was injected. Good spread of dye observed in the epidural space followed by 3 mL of 0.5% lidocaine mixed with 80 mg of triamcinolone. She tolerated the procedure well and was observed for 45 minutes and discharged. Followup visit planned as needed. <ELECTRONICALLY SIGNED> By: Tarun Scott MD 03/20/19 1652 [id number] Tarun Scott MD /nt
== END | disposition home or self-care (01) ==
LOC: PAIN 06:34
DX: M47.26 Other spondylosis with radiculopathy, lumbar region (principal); M96.1 Postlaminectomy syndrome, not elsewhere classified; I10 Essential (primary) hypertension; F17.210 Nicotine dependence, cigarettes, uncomplicated; Z88.2 Allergy status to sulfonamides; Z88.8 Allergy status to other drugs, medicaments and biological substances; Z79.899 Other long term (current) drug therapy; Z79.82 Long term (current) use of aspirin

== ENCOUNTER → 2019-03-17 | Outpatient (CLI) | payer OTHER, BC | LOC: BC 11:56 | DX: Z12.31 Encounter for screening mammogram for malignant neoplasm of breast (principal) ==

== ENCOUNTER → 2019-05-26 | Outpatient (CLI) | payer OTHER, BC ==
[~2019-05-26] VITALS: Ht 165.1 cm; Wt 83.5 kg
--- NOTE | ~2019-05-26 | HPC ---
[facility] [place] [address] PAIN MANAGEMENT CONSULTATION Name: PATEL MCMULLEN Room #: [facility].#: [id number] Admission: 05/26/19 Attend Phys: Tarun Scott MD Discharge: Date of : 40 Report #: [id number] THIS REPORT FOR: //name// CC: Dahlia Scott DATE OF SERVICE: 05/26/2019 This is a followup visit for the patient who is here today for another epidural injection. This will be her third epidural injection in a 6-month period of time. She responds nicely, gets about 2 months of pain relief from the injections. She is trying to avoid the use of any additional medication. She currently uses no opioid medications whatsoever. PQRS REVIEW: 1. Complains of arthritis in the right knee. 2. BMI 30.6. The association with weight and chronic pain was discussed and strategies. 3. Blood pressure 158/67, heart rate 78, respirations 18, O2 sat 98. 4. Pain intensity is 7/10. 5. She needs help standing and walking and has fallen once in the last 3 months. She uses a cane to prevent further falls. She was counseled. 6. No blood thinners. 7. She is hypertensive. She uses losartan and Lasix to help control her pressure. 8. She is on no opioids. 9. She completed an opioid risk tool scoring 0. 10. Functional assessment score 48/70 suggesting moderate to severe interference of day-to-day activities with her chronic pain. 11. 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 I should note that she is quite active and has been able to do her this year. PHYSICAL EXAMINATION: VITAL SIGNS: As noted. Her gait is antalgic. She is a bit unsteady. Positive straight leg raising is noted bilaterally, worse on the right than the left. IMPRESSION: 1. Chronic low back pain with radiculopathy. 2. Multilevel degenerative disk disease with neural foraminal narrowing. RECOMMENDATION: Epidural steroid injection L5-S1 under fluoroscopic guidance. [facility] [address] [place] [address] PAIN MANAGEMENT CONSULTATION Name: PATEL MCMULLEN Room #: [facility].#: [id number] Admission: 05/26/19 Attend Phys: Tarun Scott MD Discharge: Date of : 40 Report #: [id number] DESCRIPTION OF PROCEDURE: She was taken to fluoroscopic suite for the treatment and placed prone. Skin was prepped with ChloraPrep. Skin was anesthetized over the L5-S1 epidural space. A 20-gauge Tuohy epidural needle was advanced in first attempt in the epidural space with loss of resistance technique and there was no blood or CSF aspirated. A 1 mL of Omnipaque was injected. Good spread of dye was observed in the epidural space. It was then followed by 3 mL of 0.5% lidocaine mixed with 80 mg triamcinolone. She tolerated the procedure well and was observed for 45 minutes and discharged. Followup visit scheduled as needed. By: [id number] Tarun Scott MD /nt
[2019-05-26 13:13] VITALS: BP 158/67
--- NOTE | 2019-05-26 13:29 | NUR ---
Pain Clinic Assessment: 1. History of Osteoarthritis: Right Lower Extremity History of Rheumatoid Arthritis: Not Applicable 2. Height: 5 ft. 5 in. 165.1 cm. Weight: 184.0 lb. oz. 83.462 kg. Patient's BMI: 30.6 3. Vital Signs: BP: 158/67 Pulse: 78 Resp: 18 Temp: 02 Sat: 98 ECG Mon: 4. Pain Intensity: 7 5. Fall Risk: Dizziness: N Needs help standing or walking: Y Fallen in the last 3 months: Y Fall risk comments: USES CANE 6. Patient on Blood Thinner: None 7. History of Hypertension: Y 8. Opioid Therapy greater than 6 weeks: N Opiate Contract Signed: 9. Risk Assessment Tool Provided: LOW RISK 0 10. Functional Assessment Tool: 48/ 11. Recreational Drug Use: Never Drug Type: Tobacco Use: Current Every Day Smoker Tobacco Type: Cigarettes Amount or Packs/day: How Many Years: Alcohol Use: Yes Frequency: Quant:
== END | disposition home or self-care (01) ==
LOC: PAIN 07:19
DX: M51.16 Intervertebral disc disorders with radiculopathy, lumbar region (principal); M48.061 Spinal stenosis, lumbar region without neurogenic claudication; G89.29 Other chronic pain; I10 Essential (primary) hypertension; I48.91 Unspecified atrial fibrillation; I25.2 Old myocardial infarction; F17.210 Nicotine dependence, cigarettes, uncomplicated; Z98.890 Other specified postprocedural states; Z79.899 Other long term (current) drug therapy; Z79.01 Long term (current) use of anticoagulants; Z91.041 Radiographic dye allergy status; Z79.82 Long term (current) use of aspirin